=== PATIENT | female | born 1945 | race African-American/Black ===

== ENCOUNTER 2019-02-28 13:29 | Inpatient (IN) ==
[2019-02-28 14:39] LABS: Basophils % 0.6 % (0.0-0.8); Eosinophils # 0.1 10*3/uL (0.0-0.87); Eosinophils % 1.1 % (0.00-10.9); Hematocrit 41.1 VOL% (35.7-47.0); Hemoglobin 13.5 GM/DL (12.0-16.0); Immature Granulocytes % 0.4 %; Immature Granulocytes Absolute 0.02 #; Lymphocytes # 1.1 10*3/uL (1.4-4.0); Lymphocytes % 22.7 % (21.3-54.2); Mean Corpuscular HGB Conc 32.8 GM/DL (32-36); Mean Corpuscular Volume 90.7 FL (87-102); Mean Platelet Volume 11.7 FL (9.6-12.0); Monocytes % 13.6 % (1.7-12.7); Neutrophils % 61.6 % (38.7-73.9); Platelet Count 158 T/CUMM (130-400); Red Blood Count 4.53 MC/CUMM (3.8-5.5); Red Cell Distribution Width 13.9 % (9.3-17.3); White Blood Count 4.6 T/CUMM (4-12)
[2019-02-28 15:03] LABS: Albumin 4.4 G/DL (3.4-5.0); Bilirubin,Total 1.3 MG/DL (0.2-1.0); Calcium 9.4 MG/DL (8.5-10.1); Osmolality,Calculated 280.4 MOS/KG (273-304); Total Protein 7.8 G/DL (6.4-8.3)
[2019-02-28] MEDS ORDERED: ENOXAPARIN 120 MG/0.8 ML SYRINGE SUBCUT STA (17:14)
[2019-02-28] MEDS ORDERED: ONDANSETRON 4 MG/2 ML VIAL IV PRN (20:25)
[2019-02-28] MEDS ORDERED: ACETAMINOPHEN 325 MG TABLET PO PRN (20:25)
[2019-02-28] MEDS: DOCUSATE SODIUM 100 MG CAPSULE PO SCH (22:24)
[2019-02-28] MEDS: POTASSIUM CHLORIDE 20 MEQ TABLET PO SCH (22:24)
[2019-02-28] MEDS: CARVEDILOL 6.25 MG TABLET PO SCH (22:25)
[2019-02-28] MEDS: SODIUM CHLORIDE 0.9% 1,000 ML IV SCH (22:25)
[2019-03-01] MEDS: SODIUM CHLORIDE 0.9% 1,000 ML IV SCH ×2 (05:56→13:58)
[2019-03-01] MEDS: POTASSIUM CHLORIDE 20 MEQ TABLET PO SCH ×2 (08:49→21:11)
[2019-03-01] MEDS: ASPIRIN EC 81 MG TABLET PO SCH (08:49)
[2019-03-01] MEDS: PANTOPRAZOLE 40 MG TABLET PO SCH (08:49)
[2019-03-01] MEDS: DOCUSATE SODIUM 100 MG CAPSULE PO SCH ×2 (08:49→21:11)
[2019-03-01] MEDS: CARVEDILOL 6.25 MG TABLET PO SCH ×2 (08:49→21:11)
[2019-03-01] MEDS: LOSARTAN 50 MG TABLET PO SCH (08:50)
[2019-03-01] MEDS: ENOXAPARIN 120 MG/0.8 ML SYRINGE SUBCUT SCH ×2 (08:52→21:12)
[2019-03-01] MEDS ORDERED: POTASSIUM CHLORIDE 20 MEQ TABLET PO SCH (09:00)
[2019-03-01] MEDS ORDERED: ENOXAPARIN 120 MG/0.8 ML SYRINGE SUBCUT ONE (09:00)
[2019-03-01] MEDS: BUMETANIDE 1 MG TABLET PO SCH (09:19)
[2019-03-02 05:15] LABS: Basophils % 0.5 % (0.0-0.8); Eosinophils # 0.1 10*3/uL (0.0-0.87); Eosinophils % 3.5 % (0.00-10.9); Hematocrit 36.6 VOL% (35.7-47.0); Hemoglobin 11.8 GM/DL (12.0-16.0); Immature Granulocytes % 0.3 %; Immature Granulocytes Absolute 0.01 #; Lymphocytes # 1.1 10*3/uL (1.4-4.0); Lymphocytes % 30.2 % (21.3-54.2); Mean Corpuscular HGB Conc 32.2 GM/DL (32-36); Mean Corpuscular Volume 91.7 FL (87-102); Mean Platelet Volume 11.3 FL (9.6-12.0); Monocytes % 14.7 % (1.7-12.7); Neutrophils % 50.8 % (38.7-73.9); Platelet Count 137 T/CUMM (130-400); Red Blood Count 3.99 MC/CUMM (3.8-5.5); White Blood Count 3.7 T/CUMM (4-12)
[2019-03-02 05:28] LABS: Calcium 8.8 MG/DL (8.5-10.1)
[2019-03-02 07:54] VITALS: BP 105/64
[2019-03-02] MEDS ORDERED: APIXABAN 5 MG TABLET PO SCH (09:00)
[2019-03-02] MEDS: PANTOPRAZOLE 40 MG TABLET PO SCH (09:08)
[2019-03-02] MEDS: ASPIRIN EC 81 MG TABLET PO SCH (09:09)
[2019-03-02] MEDS: POTASSIUM CHLORIDE 20 MEQ TABLET PO SCH (09:10)
[2019-03-02] MEDS: LOSARTAN 50 MG TABLET PO SCH (09:11)
[2019-03-02] MEDS: DOCUSATE SODIUM 100 MG CAPSULE PO SCH (09:11)
[2019-03-02] MEDS: CARVEDILOL 6.25 MG TABLET PO SCH (09:14)
[2019-03-02] MEDS: BUMETANIDE 1 MG TABLET PO SCH (09:18)
[2019-03-02 14:02] LABS: Protein C Activity Plasma 73 % (70 - 150)
[2019-03-03 12:21] LABS: DRVVT Screen Ratio 0.7 ratio (0.0 - 1.1); INR 1.1
[2019-03-03 13:16] LABS: Protein S Activity Plasma 98 % (65 - 160)
[2019-03-03 13:51] LABS: Homocysteine 15 mcmol/L
[2019-03-04 09:22] LABS: PTNT Reviewed By SEE COMMENTS
[2019-03-04 17:11] LABS: F5DNA Reviewed By SEE COMMENTS; Factor V Leiden (R506Q) Mutati Negative (Negative)
== END 2019-03-02 10:33 | disposition home or self-care (01) | DRG 176 ==
LOC: N.ED 13:29 → N.EDINP 17:22 → N.TELEN 18:03
PROVIDERS: ADMIT Internal Medicine; ATTEND Internal Medicine

== ENCOUNTER 2020-03-01 10:24 | Observation (INO) ==
[2020-03-01 11:13] LABS: Apearance,Urine CLEAR (Clear); Bacteria,Urine Moderate /HPF (Few); Bilirubin,Urine Negative (Negative); Blood, Urine Negative (Negative); Glucose,Urine (UA) Negative (Negative); Hyaline Casts,Urine 3 /LPF (0-3); Ketones,Urine Negative (Negative); Nitrite,Urine Negative (Negative); Protein,Urine Negative; RBC,Urine 1 /HPF (0-4); Squamous Epithelial Cell,Urine Occasional /HPF (0-10); Urine Color Colorless (Yellow); Urine Specific Gravity 1.004 (1.001-1.035); Urine Urobilinogen < 2.0 EU/DL (0.2-1.0); WBC,Urine <1 /HPF (0-6)
[2020-03-01 11:14] LABS: Basophils % 0.8 % (0.0-0.8); Eosinophils # 0.1 10*3/uL (0.0-0.87); Eosinophils % 2.1 % (0.00-10.9); Hematocrit 36.9 VOL% (35.7-47.0); Hemoglobin 12.1 GM/DL (12.0-16.0); Lymphocytes # 1.2 10*3/uL (1.4-4.0); Lymphocytes % 32.1 % (21.3-54.2); Mean Corpuscular HGB Conc 32.8 GM/DL (32-36); Mean Corpuscular Volume 87.6 FL (87-102); Mean Platelet Volume 11.9 FL (9.6-12.0); Monocytes % 13.4 % (1.7-12.7); Neutrophils % 51.6 % (38.7-73.9); Platelet Count 193 T/CUMM (130-400); Red Blood Count 4.21 MC/CUMM (3.8-5.5); Red Cell Distribution Width 15.2 % (9.3-17.3); White Blood Count 3.7 T/CUMM (4-12)
[2020-03-01 11:25] LABS: PT Patient Result 10.5 SECS (9.8-11.9); Partial Thromboplastin Time 27.5 SECS (23.9-33.8)
[2020-03-01 11:32] LABS: Albumin 4.1 G/DL (3.4-5.0); Bilirubin,Total 0.5 MG/DL (0.2-1.0); Calcium 9.1 MG/DL (8.5-10.1); Osmolality,Calculated 284.3 MOS/KG (273-304); Total Protein 7.4 G/DL (6.4-8.3)
[2020-03-01] MEDS ORDERED: MORPHINE 4 MG/1 ML VIAL IV PRN (14:18)
[2020-03-01] MEDS ORDERED: ONDANSETRON 4 MG/2 ML VIAL IV PRN (14:18)
[2020-03-01] MEDS ORDERED: GLUCAGON 1 MG VIAL IM PRN (14:18)
[2020-03-01] MEDS ORDERED: DEXTROSE 50% 25 GM/50 ML VIAL IV PRN (14:18)
[2020-03-01] MEDS ORDERED: MAGNESIUM SULF RIDER 2 GM in PREMIX 1 EACH IV PRN (14:18)
[2020-03-01] MEDS ORDERED: POTASSIUM CHLORIDE 20 MEQ TABLET PO PRN ×2 (14:18)
[2020-03-01] MEDS ORDERED: MAGNESIUM SULF RIDER 4 GM in PREMIX 1 EACH IV PRN (14:18)
[2020-03-01] MEDS ORDERED: ALUM/MAG/SIMETH/LIDO VISC 1:1 30 ML BOTTLE PO STA (15:19)
[2020-03-01] MEDS ORDERED: NITROGLYCERIN SL 0.4 MG TABLET SL STA (15:19)
[2020-03-01] MEDS ORDERED: PANTOPRAZOLE 40 MG VIAL IV ONE (15:41)
[2020-03-01] MEDS: LACTATED RINGERS 1,000 ML IV SCH (17:00)
[2020-03-01 17:20] LABS: PT Patient Result 10.9 SECS (9.8-11.9); Partial Thromboplastin Time 27.3 SECS (23.9-33.8)
[2020-03-01 17:28] LABS: Troponin I < 0.015 NG/ML (0.00-0.045)
[2020-03-01 17:32] LABS: Risk Ratio 1.66; Thyroid Stimulating Hormone 3.5 uIU/ml (0.358-3.74)
[2020-03-01 20:55] LABS: Troponin I < 0.015 NG/ML (0.00-0.045)
[2020-03-01] MEDS ORDERED: ENOXAPARIN 40 MG/0.4 ML SYRINGE SUBCUT SCH (21:00)
[2020-03-01] MEDS ORDERED: ALUM/MAG/SIMETH/LIDO VISC 1:1 30 ML BOTTLE PO ONE (21:00)
[2020-03-02] MEDS: LACTATED RINGERS 1,000 ML IV SCH (02:30)
[2020-03-02 05:26] LABS: Basophils % 0.8 % (0.0-0.8); Eosinophils % 1.5 % (0.00-10.9); Hematocrit 32.6 VOL% (35.7-47.0); Hemoglobin 10.4 GM/DL (12.0-16.0); Immature Granulocytes % 0.4 %; Immature Granulocytes Absolute 0.01 #; Lymphocytes # 0.7 10*3/uL (1.4-4.0); Lymphocytes % 27.9 % (21.3-54.2); Mean Corpuscular HGB Conc 31.9 GM/DL (32-36); Mean Corpuscular Volume 90.6 FL (87-102); Mean Platelet Volume 11.8 FL (9.6-12.0); Monocytes % 15.1 % (1.7-12.7); Neutrophils % 54.3 % (38.7-73.9); Platelet Count 128 T/CUMM (130-400); Red Cell Distribution Width 14.9 % (9.3-17.3); White Blood Count 2.7 T/CUMM (4-12)
[2020-03-02 05:49] LABS: Albumin 3.2 G/DL (3.4-5.0); Bilirubin,Total 0.9 MG/DL (0.2-1.0); Calcium 8.5 MG/DL (8.5-10.1); Osmolality,Calculated 287.1 MOS/KG (273-304); Total Protein 6.2 G/DL (6.4-8.3)
[2020-03-02 07:11] LABS: Anisocytosis 1+; Platelet Estimate Adequate
[2020-03-02 07:45] VITALS: BP 112/59
[2020-03-02] MEDS ORDERED: ASPIRIN EC 325 MG TABLET PO SCH (09:00)
[2020-03-02] MEDS ORDERED: MULTIVITAMIN (CENTRUM) TABLET PO SCH (09:45)
[2020-03-02] MEDS ORDERED: VITAMIN E 400 UNIT CAPSULE PO SCH (10:00)
[2020-03-02] MEDS ORDERED: CYANOCOBALAMIN 1000 MCG/1 ML VIAL IM SCH (10:00)
[2020-03-02] MEDS ORDERED: PANTOPRAZOLE 40 MG TABLET PO SCH (10:00)
[2020-03-02] MEDS ORDERED: ASCORBIC ACID 500 MG TABLET PO SCH (10:00)
[2020-03-02] MEDS ORDERED: BUMETANIDE 1 MG TABLET PO SCH (10:00)
[2020-03-02] MEDS ORDERED: ASPIRIN EC 81 MG TABLET PO SCH (10:00)
[2020-03-02] MEDS ORDERED: FOLIC ACID 1 MG TABLET PO SCH (10:00)
[2020-03-02] MEDS ORDERED: POTASSIUM CHLORIDE 20 MEQ TABLET PO SCH (10:00)
[2020-03-02] MEDS ORDERED: carvediloL 6.25 MG TABLET PO SCH (10:00)
[2020-03-02] MEDS ORDERED: CHOLECALCIFEROL 1,000 UNIT TABLET PO SCH (10:00)
[2020-03-02] MEDS ORDERED: APIXABAN 2.5 MG TABLET PO SCH (10:00)
[2020-03-02] MEDS ORDERED: ALUM/MAG/SIMETH/LIDO VISC 1:1 30 ML BOTTLE PO ONE (10:19)
[2020-03-02] MEDS ORDERED: CALCIUM (CARBONATE) 600 MG TABLET PO SCH (12:00)
[2020-03-02] MEDS ORDERED: LOSARTAN 50 MG TABLET PO SCH (21:00)
[2020-03-03] MEDS ORDERED: PYRIDOXINE 50 MG TABLET PO SCH (09:00)
[2020-03-03] MEDS ORDERED: allopurinoL 100 MG TABLET PO SCH (09:00)
== END 2020-03-02 12:54 | disposition home or self-care (01) ==
LOC: N.ED 10:24 → N.EDINP 10:24 → N.TELES 15:44
PROVIDERS: ADMIT Internal Medicine; ATTEND Internal Medicine

== ENCOUNTER 2021-12-17 10:59 | Observation (INO) ==
[2021-12-17] MEDS ORDERED: ASPIRIN 325 MG TABLET ONE (11:29)
[2021-12-17] MEDS ORDERED: NITROGLYCERIN SL 0.4 MG TABLET SL ONE (11:29)
[2021-12-17] MEDS ORDERED: ASPIRIN 325 MG TABLET PO STA (11:32)
[2021-12-17] MEDS ORDERED: ENOXAPARIN 100 MG/ML SYRINGE SUBCUT STA (11:32)
[2021-12-17] MEDS ORDERED: NITROGLYCERIN SL 0.4 MG TABLET SL PRN (11:32)
[2021-12-17 11:49] LABS: Basophils % 1.2 % (0.0-0.8); Eosinophils % 1.2 % (0.00-10.9); Hematocrit 32.4 VOL% (35.7-47.0); Hemoglobin 10.9 GM/DL (12.0-16.0); Immature Granulocytes % 0.9 %; Immature Granulocytes Absolute 0.03 #; Lymphocytes # 0.9 10*3/uL (1.4-4.0); Lymphocytes % 26.4 % (21.3-54.2); Mean Corpuscular HGB Conc 33.6 GM/DL (32-36); Mean Platelet Volume 11.4 FL (9.6-12.0); Monocytes # 0.5 10*3/uL (0.11-0.8); Monocytes % 15.1 % (1.7-12.7); Neutrophils % 55.2 % (38.7-73.9); Platelet Count 188 T/CUMM (130-400); Red Blood Count 3.56 MC/CUMM (3.8-5.5); Red Cell Distribution Width 15.6 % (9.3-17.3); White Blood Count 3.5 T/CUMM (4-12)
[2021-12-17 12:05] LABS: Bilirubin,Total 0.8 MG/DL (0.20-1.00); Calcium 9.3 MG/DL (8.5-10.1); Osmolality,Calculated 282.1 MOS/KG (273-304); Potassium 4.7 MMOL/L (3.5-5.1); Total Protein 6.8 G/DL (6.4-8.2)
[2021-12-17 13:05] LABS: Bacteria,Urine Few /HPF (Few); Hyaline Casts,Urine 4 /LPF (0-3); Squamous Epithelial Cell,Urine Occasional /HPF (0-10); Urine Appearance Clear (Clear); Urine Color Yellow (Yellow); Urine pH 5.5 (4.5-8.0)
[2021-12-17 13:07] LABS: Urine Specific Gravity 1.006 (1.001-1.035)
[2021-12-17 13:08] LABS: Bilirubin,Urine Negative (Negative); Blood, Urine Trace mg/dL (Negative); Glucose,Urine (UA) Negative (Negative); Ketones,Urine Negative (Negative); Nitrite,Urine Negative (Negative); Protein,Urine Negative (Negative); Urine Urobilinogen 0.2 eU/dL (<2.0)
[2021-12-17 13:11] LABS: Barbiturates Screen,Urine Negative (Negative); Benzodiazepines Screen,Urine Negative (Negative); Cannabinoid Screen,Urine Negative (Negative); Opiate Screen,Urine Negative (Negative); Phencyclidine Screen,Urine Negative (Negative)
[2021-12-17] MEDS ORDERED: ACETAMINOPHEN 325 MG TABLET PO PRN (13:12)
[2021-12-17] MEDS ORDERED: DEXTROSE 50% 25 GM/50 ML VIAL IV PRN (13:12)
[2021-12-17] MEDS ORDERED: ONDANSETRON 4 MG/2 ML VIAL IV PRN (13:12)
[2021-12-17] MEDS ORDERED: DEXTROSE 10% 25 GM/250 ML BAG IV PRN (13:12)
[2021-12-17] MEDS ORDERED: hydrALAZINE 20 MG/1 ML VIAL IV PRN (13:12)
[2021-12-17] MEDS ORDERED: GLUCAGON 1 MG VIAL IM PRN ×2 (13:12)
[2021-12-17] MEDS ORDERED: DOCUSATE SODIUM 100 MG CAPSULE PO PRN (13:12)
[2021-12-17 13:50] LABS: % Iron Saturation 24.7 % (18-50); Ferritin 12.3 ng/mL (8-252); Risk Ratio 1.11; VLDL Cholesterol 8.2 MG/DL
[2021-12-17] MEDS: INSULIN LISPRO 100 UNIT/ML SUBCUT SCH ×2 (17:14→21:58)
[2021-12-17] MEDS: SUCRALFATE 1 GM TABLET PO SCH ×2 (18:23→21:58)
[2021-12-17] MEDS ORDERED: carvediloL 6.25 MG TABLET PO SCH (21:00)
[2021-12-17] MEDS: PANTOPRAZOLE 40 MG TABLET PO SCH (21:58)
[2021-12-17] MEDS: APIXABAN 5 MG TABLET PO SCH (21:58)
[2021-12-17] MEDS: POTASSIUM CHLORIDE 20 MEQ TABLET PO SCH (21:58)
[2021-12-18 05:32] LABS: Basophils % 1.1 % (0.0-0.8); Eosinophils # 0.1 10*3/uL (0.0-0.87); Eosinophils % 3.2 % (0.00-10.9); Hematocrit 29.7 VOL% (35.7-47.0); Hemoglobin 9.7 GM/DL (12.0-16.0); Lymphocytes # 0.9 10*3/uL (1.4-4.0); Lymphocytes % 31.3 % (21.3-54.2); Mean Corpuscular HGB Conc 32.7 GM/DL (32-36); Mean Corpuscular Volume 93.4 FL (87-102); Mean Platelet Volume 11.1 FL (9.6-12.0); Monocytes # 0.5 10*3/uL (0.11-0.8); Monocytes % 19.4 % (1.7-12.7); Platelet Count 156 T/CUMM (130-400); Red Blood Count 3.18 MC/CUMM (3.8-5.5); Red Cell Distribution Width 15.7 % (9.3-17.3); White Blood Count 2.8 T/CUMM (4-12)
[2021-12-18 05:50] LABS: Albumin 3.1 G/DL (3.4-5.0); Bilirubin,Total 0.9 MG/DL (0.20-1.00); Calcium 9.2 MG/DL (8.5-10.1); Osmolality,Calculated 287.7 MOS/KG (273-304); Potassium 3.9 MMOL/L (3.5-5.1); Total Protein 5.9 G/DL (6.4-8.2)
[2021-12-18 05:57] LABS: Eosinophils 2 % (0-10); Lymphocytes 33 % (20-55); Platelet Estimate Adequate; Total Cells Counted 100
[2021-12-18] MEDS: INSULIN LISPRO 100 UNIT/ML SUBCUT SCH ×2 (08:41→11:25)
[2021-12-18] MEDS: SUCRALFATE 1 GM TABLET PO SCH (08:57)
[2021-12-18] MEDS: PANTOPRAZOLE 40 MG TABLET PO SCH (08:57)
[2021-12-18] MEDS: APIXABAN 5 MG TABLET PO SCH (08:58)
[2021-12-18] MEDS: POTASSIUM CHLORIDE 20 MEQ TABLET PO SCH (08:58)
[2021-12-18] MEDS ORDERED: LEVOTHYROXINE 50 MCG TABLET PO SCH (09:00)
[2021-12-18] MEDS ORDERED: MAGNESIUM OXIDE 400 MG TABLET PO SCH (09:00)
[2021-12-18] MEDS ORDERED: CYANOCOBALAMIN 1000 MCG/1 ML VIAL IM SCH (09:00)
[2021-12-18] MEDS ORDERED: CHOLECALCIFEROL 1,000 UNIT TABLET PO SCH (09:00)
[2021-12-18] MEDS ORDERED: VITAMIN E 400 UNIT CAPSULE PO SCH (09:00)
[2021-12-18] MEDS ORDERED: PYRIDOXINE 50 MG TABLET PO SCH (09:00)
[2021-12-18] MEDS ORDERED: BUMETANIDE 1 MG TABLET PO SCH (09:00)
[2021-12-18] MEDS ORDERED: ASPIRIN EC 81 MG TABLET PO SCH (09:00)
[2021-12-18] MEDS ORDERED: PANTOPRAZOLE 40 MG TABLET PO SCH (09:00)
[2021-12-18] MEDS ORDERED: NEBIVOLOL 5 MG TABLET PO SCH (09:00)
[2021-12-18] MEDS ORDERED: FOLIC ACID 1 MG TABLET PO SCH (09:00)
[2021-12-18] MEDS ORDERED: allopurinoL 100 MG TABLET PO SCH (09:00)
[2021-12-18] MEDS ORDERED: ASCORBIC ACID 500 MG TABLET PO SCH (09:00)
[2021-12-18] MEDS ORDERED: LOSARTAN 50 MG TABLET PO SCH (09:00)
[2021-12-18 12:29] VITALS: BP 110/46
== END 2021-12-18 12:53 | disposition home or self-care (01) ==
LOC: N.EDINP 10:59 → N.ED 10:59 → N.EDINP 16:53 → N.TELES 17:07
PROVIDERS: ADMIT Internal Medicine; ATTEND Internal Medicine